=== PATIENT | male | born 1955 | race Native Hawaiian/Other Pacific Islander ===

== ENCOUNTER 2021-07-24 18:20 | Emergency (ER) | payer OTHER ==
[~2021-07-24] VITALS: Ht 165.1 cm; Wt 74.8 kg
[2021-07-24 18:50] LABS: PLATELET COUNT 234 K/uL (142-355)
[2021-07-24 18:58] LABS: POTASSIUM 3.9 mmol/L (3.6-5.2)
[2021-07-24 20:17] VITALS: BP 125/78; TEMP 98.5
== END 2021-07-24 20:19 | disposition home or self-care (01) ==
LOC: ED 18:20
PROVIDERS: Emergency Medicine
DX: M79.661 Pain in right lower leg (principal)
CPT/HCPCS: 80048; 85027; 85379; 99283